=== PATIENT | male | born 1955 | race American Indian/Alaskan Native ===

== ENCOUNTER 2019-04-07 07:14 | Emergency (ER) | payer SELFPAY ==
[2019-04-07] MEDS ORDERED: IBUPROFEN PO ONE ×2 (07:55)
[2019-04-07] MEDS ORDERED: MORPHINE IM ONE (08:28)
--- NOTE | 2019-04-07 08:31 | Emergency Department Report ---
ED Back Pain/Injury HPI - General Chief Complaint: Back Pain/Injury Stated Complaint: BACK PAIN Time Seen by Provider: 04/07/19 08:24 Source: patient Limitations: No Limitations - History of Present Illness Initial Comments: Patient is 64 years old male with history of hypertension. Patient presented to the ER complaining of lower back pain that radiated down to his left leg. Patient stated that symptoms started 4 days ago when he bend. Patient denied any fever, weight loss, focal weakness, numbness or tingling sensation. Patient also denied any bowel or bladder incontinence. MD Complaint: back pain, back injury -: days(s) (4) Place: work Radiation: left leg Severity: moderate Severity scale (0 -10): 6 Quality: sharp, dull Consistency: constant Improves With: immobilization Worsens With: movement Associated Symptoms: denies other symptoms - Related Data Allergies Allergy/AdvReac Type Severity Reaction Status Date / Time No Known Allergies Allergy Unverified 04/07/19 07:18 ED Review of Systems ROS: Stated complaint: BACK PAIN Other details as noted in HPI Comment: All other systems reviewed and negative Constitutional: denies: chills, fever Respiratory: denies: cough, shortness of breath Cardiovascular: denies: chest pain Gastrointestinal: denies: abdominal pain, nausea, vomiting Musculoskeletal: back pain. denies: joint swelling, arthralgia, myalgia Neurological: denies: headache, weakness ED Past Medical Hx - Past Medical History Previous Medical History?: Yes Hx Hypertension: Yes - Surgical History Past Surgical History?: No ED Physical Exam - General Limitations: No Limitations General appearance: alert, in no apparent distress - Head Head exam: Present: atraumatic, normocephalic, normal inspection - Eye Eye exam: Present: normal appearance, PERRL - ENT ENT exam: Present: normal exam, normal orophraynx, mucous membranes moist - Neck Neck exam: Present: normal inspection, full ROM. Absent: tenderness, meningismus, lymphadenopathy, thyromegaly - Respiratory Respiratory exam: Present: normal lung sounds bilaterally - Cardiovascular Cardiovascular Exam: Present: regular rate, normal rhythm, normal heart sounds - GI/Abdominal GI/Abdominal exam: Present: soft, normal bowel sounds. Absent: distended, tenderness, guarding, rebound, rigid, organomegaly, mass, bruit, pulsatile mass, hernia - Extremities Exam Extremities exam: Present: normal inspection, full ROM, normal capillary refill. Absent: tenderness, pedal edema, joint swelling, calf tenderness - Back Exam Back exam: Present: normal inspection, full ROM. Absent: CVA tenderness (R), CVA tenderness (L), muscle spasm, paraspinal tenderness, vertebral tenderness - Neurological Exam Neurological exam: Present: alert, oriented X3, CN II-XII intact, normal gait, reflexes normal - Psychiatric Psychiatric exam: Present: normal mood - Skin Skin exam: Present: warm, intact, normal color ED Course Vital Signs 04/07/19 08:58 Respiratory 19 Rate ED Medical Decision Making - Radiology Data Radiology results: report reviewed Referring Physician: ADRIÁN CHOI Patient Name: VICKIE EMERY Date of : 1955 Sex: Male Report Date: 2019-04-07 Report Status: Finalized Findings [facility] [address] [place] [address] Cat Scan Report Signed Patient: VICKIE EMERY MR#: [id number] : 1955 Acct:[id number] Age/Sex: 64 / M ADM Date: 04/07/19 Loc: ED Attending Dr: Ordering Physician: ADRIÁN CHOI Date of Service: 04/07/19 Procedure(s): CT lumbar spine wo con Accession Number(s): [id number] cc: ADRIÁN CHOI CT LUMBAR SPINE WITHOUT CONTRAST INDICATION: back pain and injury. TECHNIQUE: Axial imaging performed through the lumbar spine without the use of contrast. Sagittal and coronal reconstructed images were also reviewed. All CT scans at this location are performed using CT dose reduction for ALARA by means of automated exposure control. COMPARISON: None FINDINGS: Alignment: Spinal alignment is normal. Bones: There is no acute osseous abnormality. Minimal degenerative endplate changes are noted throughout the lumbar spine without significant disc space narrowing. The facet joints are unremarkable. No bony lesion. Soft tissues: No acute or significant incidental soft tissue abnormality. Although intraspinal content is limited on noncontrast CT, there is suggestion of a large disc extrusion at the level of L4-5 on the sagittal reconstructed images. This appears to lateralize to the left side. IMPRESSION: Minimal degenerative disc disease throughout the lumbar spine. No acute osseous injury. There is suggestion of a large disc herniation at L4-5. Please correlate with the patient and consider further imaging with MRI. Signer Name: Jeff Kate Jr, MD Signed: 04/07/2019 10:03 AM Workstation Name: [id number] Transcribed By: JUSTIN Dictated By: JEFF KATE JR, MD Electronically Authenticated By: JEFF KATE JR, MD Signed Date/Time: 04/07/19 1003 DD/ 1000 TD/TT: - Medical Decision Making Patient is 64 years old male with history of hypertension. Patient presented to the ER complaining of lower back pain that radiated down to his left leg. Patient stated that symptoms started 4 days ago when he bend. Patient denied any fever, weight loss, focal weakness, numbness or tingling sensation. Patient also denied any bowel or bladder incontinence. CT lumbar showed a large L4-L5 disc herniation. Patient received morphine, Dilaudid and Decadron. Patient stated that his symptoms much better. Patient is still denying any weakness, numbness or tingling sensation. No bowel or bladder incontinence. Patient and family strongly recommended to follow-up as patient primary care physician for outpatient MRI for further assessment and referral to spine surgeon. Patient also advised to return to the ER if symptoms are not improved. Critical care attestation.: If time is entered above; I have spent that time in minutes in the direct care of this critically ill patient, excluding procedure time. ED Disposition Clinical Impression: Acute back pain, Lumbar disc herniation with radiculopathy Disposition: TO HOME OR SELFCARE Is pt being admited?: No Condition: Stable Instructions: Acute Low Back Pain (ED), Lumbar Radiculopathy (ED) Referrals: MYNOR WILLIS MD [Primary Care Provider] - 3-5 Days PENNY OLIVEROS MD [Staff Physician] - 3-5 Days
[2019-04-07] MEDS: ZOFRAN IM ONE ×2 (08:59→11:43)
--- NOTE | 2019-04-07 10:07 | Cat Scan Report ---
CT LUMBAR SPINE WITHOUT CONTRAST INDICATION: back pain and injury. TECHNIQUE: Axial imaging performed through the lumbar spine without the use of contrast. Sagittal a nd coronal reconstructed images were also reviewed. All CT scans at this location are performed usin g CT dose reduction for ALARA by means of automated exposure control. COMPARISON: None FINDINGS: Alignment: Spinal alignment is normal. Bones: There is no acute osseous abnormality. Minimal degenerative endplate changes are noted throu ghout the lumbar spine without significant disc space narrowing. The facet joints are unremarkable. No bony lesion. Soft tissues: No acute or significant incidental soft tissue abnormality. Although intraspinal content is limited on noncontrast CT, there is suggestion of a large disc extrus ion at the level of L4-5 on the sagittal reconstructed images. This appears to lateralize to the left side. IMPRESSION: Minimal degenerative disc disease throughout the lumbar spine. No acute osseous injury. There is suggestion of a large disc herniation at L4-5. Please correlate with the patient and conside r further imaging with MRI. Signer Name: Jeff Kate Jr, MD Signed: 04/07/2019 10:03 AM Workstation Name: [id number]
[2019-04-07] MEDS ORDERED: DILAUDID IV ONE ×2 (11:13→12:55)
[2019-04-07] MEDS ORDERED: DECADRON IV ONE (11:13)
[2019-04-07] MEDS ORDERED: ZOFRAN ONE (11:32)
[2019-04-07 12:54] VITALS: BP 200/94
== END 2019-04-07 13:39 | disposition home or self-care (01) ==
LOC: ED 07:14
DX: M51.16 Intervertebral disc disorders with radiculopathy, lumbar region (principal); I10 Essential (primary) hypertension
CPT/HCPCS: 72131; 96372; 96374; 96375; 96376; 99283; J1100; J1170; J2270; J2405

== ENCOUNTER 2019-04-12 09:12 | Emergency (ER) | payer SELFPAY ==
--- NOTE | 2019-04-12 10:39 | Emergency Department Report ---
ED Back Pain/Injury HPI - General Chief Complaint: Back Pain/Injury Stated Complaint: WAS HERE ON SUNDAY/PAIN INCREASED Time Seen by Provider: 04/12/19 10:27 Source: patient Limitations: No Limitations - History of Present Illness Initial Comments: Patient is 64 years old male recently diagnosed with a large disc herniation L 4-5. Patient stated that his symptoms is better than the last time when he came here but he still having pain and he made an appointment with his orthopedics this coming but he still complaining of pain and he asked if he can give him some pain medicine until he see his orthopedics. Patient again denied any weakness, numbness or tingling sensation. No bowel or bladder incontinence. Patient also denied any fever or chills. MD Complaint: back pain -: days(s) (6) - Related Data Previous Rx's Medication Instructions Recorded Last Taken Type Ondansetron [Zofran Odt] 4 mg PO Q8HR PRN #20 tab.rapdis 04/07/19 Unknown Rx Prednisone [predniSONE 10 mg 10 mg PO .TAPER #1 tab.ds.pk 04/07/19 Unknown Rx (6-Day Pack, 21 Tabs)] traMADol [Ultram] 50 mg PO Q6HR PRN #20 tablet 04/07/19 Unknown Rx Ondansetron [Zofran Odt] 4 mg PO Q8HR PRN #20 tab.rapdis 04/12/19 Unknown Rx Prednisone [predniSONE 10 mg 10 mg PO .TAPER #1 tab.ds.pk 04/12/19 Unknown Rx (6-Day Pack, 21 Tabs)] oxyCODONE /ACETAMINOPHEN [Percocet 1 tab PO Q6HR PRN #20 tablet 04/12/19 Unknown Rx 5/325] Allergies Allergy/AdvReac Type Severity Reaction Status Date / Time No Known Allergies Allergy Verified 04/12/19 09:33 ED Review of Systems ROS: Stated complaint: WAS HERE ON SUNDAY/PAIN INCREASED Other details as noted in HPI Comment: All other systems reviewed and negative Constitutional: denies: chills, fever Respiratory: denies: cough, shortness of breath, SOB with exertion Cardiovascular: denies: chest pain, palpitations Gastrointestinal: denies: abdominal pain, nausea, vomiting, diarrhea Musculoskeletal: back pain Neurological: denies: headache, weakness, numbness, paresthesias, confusion, abnormal gait, vertigo ED Past Medical Hx - Past Medical History Previous Medical History?: Yes Hx Hypertension: Yes - Surgical History Past Surgical History?: No - Social History Smoking Status: Never Smoker Substance Use Type: None - Medications Home Medications: Home Medications Medication Instructions Recorded Confirmed Last Taken Type Ondansetron [Zofran Odt] 4 mg PO Q8HR PRN #20 tab.rapdis 04/07/19 Unknown Rx Prednisone [predniSONE 10 mg 10 mg PO .TAPER #1 tab.ds.pk 04/07/19 Unknown Rx (6-Day Pack, 21 Tabs)] traMADol [Ultram] 50 mg PO Q6HR PRN #20 tablet 04/07/19 Unknown Rx Ondansetron [Zofran Odt] 4 mg PO Q8HR PRN #20 tab.rapdis 04/12/19 Unknown Rx Prednisone [predniSONE 10 mg 10 mg PO .TAPER #1 tab.ds.pk 04/12/19 Unknown Rx (6-Day Pack, 21 Tabs)] oxyCODONE /ACETAMINOPHEN [Percocet 1 tab PO Q6HR PRN #20 tablet 04/12/19 Unknown Rx 5/325] ED Physical Exam - General Limitations: No Limitations General appearance: alert, in no apparent distress - Head Head exam: Present: atraumatic, normocephalic, normal inspection - Eye Eye exam: Present: normal appearance - ENT ENT exam: Present: normal exam, normal orophraynx, mucous membranes moist - Neck Neck exam: Present: normal inspection, full ROM. Absent: tenderness, meningismus, lymphadenopathy, thyromegaly - Respiratory Respiratory exam: Present: normal lung sounds bilaterally - Cardiovascular Cardiovascular Exam: Present: regular rate, normal rhythm, normal heart sounds - GI/Abdominal GI/Abdominal exam: Present: soft, normal bowel sounds. Absent: distended, tenderness, guarding, rebound, rigid, organomegaly, mass, bruit, pulsatile mass, hernia - Extremities Exam Extremities exam: Present: normal inspection, full ROM, normal capillary refill. Absent: pedal edema, calf tenderness - Back Exam Back exam: Present: normal inspection, full ROM. Absent: CVA tenderness (R), CVA tenderness (L), muscle spasm, paraspinal tenderness, vertebral tenderness - Neurological Exam Neurological exam: Present: alert, oriented X3, CN II-XII intact, normal gait, reflexes normal - Psychiatric Psychiatric exam: Present: normal mood - Skin Skin exam: Present: warm, intact, normal color ED Course Vital Signs 04/12/19 09:15 Temperature 98 F Pulse Rate 108 H Respiratory 20 Rate Blood Pressure 203/115 [Right] O2 Sat by Pulse 97 Oximetry ED Medical Decision Making - Medical Decision Making Patient is 64 years old male recently diagnosed with a large disc herniation L 4-5. Patient stated that his symptoms is better than the last time when he came here but he still having pain and he made an appointment with his orthopedics this coming but he still complaining of pain and he asked if he can give him some pain medicine until he see his orthopedics. Patient again denied any weakness, numbness or tingling sensation. No bowel or bladder incontinence. Patient also denied any fever or chills. Patient again is not showing any alarming signs. Patient informed to return to the ER or go to another ER if his current having any weakness, numbness or tingling sensation. He also advised to return to the ER or go to another ER if he started having any bowel or bladder incontinence. Patient also strongly advised to keep his appointment with his orthopedics for further management. Patient given a prescription for Percocet and Medrol Kt. Patient also received clonidine 0.2 mg in the ER and had blood pressure improved significantly. Critical care attestation.: If time is entered above; I have spent that time in minutes in the direct care of this critically ill patient, excluding procedure time. ED Disposition Clinical Impression: Acute back pain, Lumbar disc herniation with radiculopathy, Malignant hypertension Disposition: TO HOME OR SELFCARE Is pt being admited?: No Condition: Stable Instructions: Lumbar Disc Herniation (ED), Acute Low Back Pain (ED), Hypertension (ED) Prescriptions: oxyCODONE /ACETAMINOPHEN [Percocet 5/325] 1 tab PO Q6HR PRN #20 tablet PRN Reason: Pain Prednisone [predniSONE 10 mg (6-Day Pack, 21 Tabs)] 10 mg PO .TAPER #1 tab.ds.pk Ondansetron [Zofran Odt] 4 mg PO Q8HR PRN #20 tab.rapdis PRN Reason: Nausea And Vomiting Referrals: PRIMARY CARE,MD [Primary Care Provider] - 3-5 Days
[2019-04-12] MEDS ORDERED: CATAPRES PO ONE (10:40)
[2019-04-12 11:07] VITALS: BP 179/108
[2019-04-13] MEDS ORDERED: D50W (25GM) Syringe IV ONE (07:58)
[2019-04-15] MEDS ORDERED: ATROPINE 0.1% (CARDIAC) ONE (12:39)
== END 2019-04-12 10:59 | disposition home or self-care (01) ==
LOC: ED 09:12
DX: M54.16 Radiculopathy, lumbar region (principal); I10 Essential (primary) hypertension; Z79.899 Other long term (current) drug therapy
CPT/HCPCS: 99282